=== PATIENT | male | born 1995 | race Caucasian/White ===

== ENCOUNTER 2022-05-01 11:14 | Emergency (ER) | payer SELFPAY ==
[2022-05-01 11:14] VITALS: BP 161/103; PULSE 150; RESP 18; TEMP 36.8; O2SAT 99; BMI 23.5
--- NOTE | 2022-05-01 11:25 | XR_ITS ---
FINAL REPORT CLINICAL HISTORY: cp AND PRESSURE, NONSMOKER COMPARISON: 02/08/2017 FINDINGS: SINGLE-VIEW CHEST The heart size is normal. The mediastinum is normal. The lungs are clear. There is no pneumothorax. IMPRESSION: No acute cardiopulmonary process. Reviewed, Interpreted and Dictated by Bassem Suh III, MD Transcribed by Khushboo Ge Authenticated and [facility]
--- NOTE | 2022-05-01 11:26 | HMH.EDCP ---
ED Disposition Clinical Impression: Chest discomfort, Atypical chest pain Disposition: Home, Self-Care Condition on Discharge: Good Instructions: DI for Atypical Chest Pain Additional Instructions: follow up cardiology, return for worse Referrals: Constantino Mccarthy MD [Primary Care Provider] - Louis Soto MD [Staff Physician] - - Critical Care Critical Care Time: No Attestation: On 05/01/22, the high probability of a clinically significant, sudden or life threatening deterioration of the following system(s) required my full and direct attention, intervention and personal management. The time I documented below is in addition to time spent performing reported procedures but includes the following listed in this critical care notation. Medical Decision Making - Medical Records Medical records reviewed: Yes: I reviewed the patient's medical records. - Jairo Inquiry Pt receiving controlled substance: No Vital Signs: 05/01/22 11:14 Temperature 98.2 F Temperature Source Oral Pulse Rate [Left Radial] 150 H Respiratory Rate 18 Blood Pressure [Right Arm] 161/103 H Blood Pressure Mean [Right Arm] 122 Blood Pressure Source [Right Arm] Automatic Cuff Blood Pressure Position [Right Arm] Sitting 02 Sat by Pulse Oximetry 99 Oxygen Delivery Method Room Air Orders (Tests/Meds): ORDERS Category Date Time Status XR chest portable Stat Exams 05/01/22 11:25 Taken EKG Request [ECG Request by Dr/Sophie] Stat Y 05/01/22 11:25 Ordered - ECG Data Tracing #1 I reviewed this ECG and interpreted as documented below: ekg by me nsr sinus arrthmia, non spec qrs and t wave changes Medical Decision Narrative: no sig risk factor for cad, nml hr, non spec ekg chNGES, ok with plab to f.u cardiuoloigy Chest Pain HPI - General Stated Complaint: chest pressure/tightness Time Seen by Provider: 05/01/22 11:26 - History of Present Illness HPI narrative: cp, soa few days since mom Duration: intermittent Activity at onset: during rest Pain location: left chest Severity: mild Pain radiation: none Relieving factors: nothing Exacerbating factors: nothing - MAICOL Score for Non-Stemi Age of Patient: <30 years old Heart Rate: 90-109 bpm Systolic Blood Pressure: 140-159 mmHg Other Risk Factors: None - Related Data Allergies Allergy/AdvReac Type Severity Reaction Status Date / Time No Known Allergies Allergy Verified 03/11/19 18:57 [facility] History - Hepatitis A Screen Attestation statement:: This patient has been screened for Hepatitis A risk factors. - Social History Alcohol Intake: never Occupational Status: employed ROS Obtained: Yes All systems reviewed & no additional complaints Physical Exam - General General appearance: alert, in no apparent distress - Head Head exam: atraumatic, normocephalic - Eye Eye exam: Present: normal appearance, PERRL - Neck Neck exam: Present: normal inspection, full ROM - Chest Chest inspection: Present: normal inspection, symmetric chest wall rise. Absent: tenderness - Respiratory Respiratory exam: Present: normal lung sounds bilaterally. Absent: respiratory distress, wheezes - Cardiovascular Cardiovascular exam: Present: regular rate, normal rhythm, normal heart sounds - Abdominal Exam Abdominal exam: Absent: tenderness, guarding, rigidity - Extremities Exam Extremities exam: Present: normal inspection, full ROM, normal capillary refill - Neurological Exam Neurological exam: Present: alert, oriented X3, CN II-XII intact - Psychiatric Psychiatric exam: Present: normal affect, normal mood, depressed. Absent: homicidal ideation, suicidal ideation - Skin Skin exam: Present: warm, intact, normal color
--- NOTE | 2022-05-01 11:27 | ECG_ITS ---
APPROVED REPORT Exam: Resting ECG HR:96 bpm ECG Measurements Heart Rate 96 AXES AZ 168 P 69 QRSd 83 QRS 47 QT 318 T 56 QTc 371 Conclusion SINUS RHYTHM WITH SINUS ARRHYTHMIA MINIMAL VOLTAGE CRITERIA FOR LVH, CONSIDER NORMAL VARIANT [MEETS CRITERIA IN ONE OF: R(aVL), S(V1), R(V5), R(V5/V6)+S(V1)] NONSPECIFIC T-WAVE ABNORMALITY BORDERLINE ECG UNCONFIRMED REPORT Electronically signed by : Jovani Saavedra MD 05/04/2022 18:07:31
[2022-05-01 12:12] VITALS: BP 140/86; PULSE 87; RESP 16; TEMP 36.6; O2SAT 98
== END 2022-05-01 12:13 | disposition home or self-care (01) ==
PROVIDERS: Emergency Provider Emergency Medicine; PCP Family Medicine
DX: R07.89 Other chest pain (principal); R06.02 Shortness of breath
CPT/HCPCS: 71045; 93005; 99284

== ENCOUNTER 2023-05-03 02:26 | Emergency (ER) | payer OTHER, SELFPAY ==
--- NOTE | 2023-05-03 02:35 | ECG_ITS ---
APPROVED REPORT Exam: Resting ECG HR:71 bpm ECG Measurements Heart Rate 71 AXES LA 168 P 69 QRSd 84 QRS 65 QT 341 T 65 QTc 364 Conclusion SINUS RHYTHM NORMAL ECG UNCONFIRMED REPORT Electronically signed by : Jovani Saavedra MD 05/03/2023 16:18:20
[2023-05-03 02:37] VITALS: BP 161/87; PULSE 74; RESP 16; TEMP 36.8; O2SAT 99; BMI 25.0
--- NOTE | 2023-05-03 03:13 | XR_ITS ---
PROCEDURE INFORMATION: Exam: XR Chest Exam date and time: 05/03/2023 3:36 AM Age: 27 years old Clinical indication: Injury or trauma; Other: Electric shock; Other: Shocked at work; Injury date: 05/03/2023; Injury details: PT went to power down machine and it shocked him; Additional info: Chest pain post electrical shock to rue TECHNIQUE: Imaging protocol: Radiologic exam of the chest. Views: 2 views. COMPARISON: CR XR CHEST PORTABLE 05/01/2022 11:26 AM FINDINGS: Lungs: Unremarkable. No consolidation. Pleural spaces: Unremarkable. No pleural effusion. No pneumothorax. Heart/Mediastinum: Unremarkable. No cardiomegaly. Bones/joints: Unremarkable. IMPRESSION: No acute findings.
[2023-05-03 03:21] LABS: Basophils # 0.1 K/mm3 (0-0.2); Basophils % 0.7 % (0.1-2.0); Eosinophils # 0.2 K/mm3 (0.0-0.4); Eosinophils % 2.2 % (0.1-12.0); Hemoglobin 14.8 g/dL (14.1-18.0); Lymphocytes # 3.5 K/mm3 (0.7-4.5); Lymphocytes % 34.6 % (10-50); Mean Corpuscular HGB Conc 32.8 g/dL (31.8-35.4); Mean Corpuscular Hemoglobin 27.6 pg (27.0-31.2); Mean Corpuscular Volume 84.2 fl (80-94); Mean Platelet Volume 7.6 fl (7.4-10.4); Monocytes # 0.7 K/mm3 (0.1-1.0); Monocytes % 6.6 % (1.7-9.3); Neutrophils # 5.6 K/mm3 (1.8-7.8); Neutrophils % 55.9 % (37.0-80.0); Platelet Count 320 K/mm3 (142-424); Red Blood Count 5.35 M/mm3 (4.60-6.20); Red Cell Distribution Width 12.8 % (11.5-17.5)
[2023-05-03 03:26] LABS: Chloride 100 mmol/L (98-107)
[2023-05-03 03:27] LABS: Potassium 3.9 mmoL/L (3.5-5.1); Sodium 141 mmol/L (136-145)
[2023-05-03 03:30] LABS: Alanine Aminotransferase 27 U/L (12-78); Albumin/Globulin Ratio 1.6 (1.1-1.8); Alkaline Phosphatase 92 U/L (38-126); Anion Gap 13.9 mEq/L (5-15); Aspartate Amino Transferase 36 U/L (17-59); Bilirubin,Total 1.2 mg/dl (0.2-1.3); Blood Urea Nitrogen 17 mg/dl (9-20); Calcium 9.1 mg/dl (8.4-10.2); Carbon Dioxide 31 mmol/L (22.0-30.0); Creatinine Clearance Estimated 116 mL/min (50-200); Estimated Glomerular Filt Rate 91 ml/min (>60); GFR (African American) 110 ML/MIN (>60); Globulin 3.1 g/dL (1.3-3.2); Glucose 102 mg/dl (74-100); Total Protein,Serum 8.1 g/dl (6.3-8.2)
--- NOTE | 2023-05-03 03:37 | HMH.EDGENADL ---
Discharge Plan Disposition Patient Disposition: Home, Self-Care Chief Complaint: PAIN Referrals Follow up/Referrals: Constantino Mccarthy MD [Primary Care Provider] - See instructions Clinical Impressions Clinical Impression: Electrical injury in adult Instructions Patient Instructions: DI for Electrical [place] Discharge ED Provider: Vance (ED)Ayad General Adult HPI General Chief complaint: PAIN Stated complaint: AO 05/02/23 23:00 Electrical Shock at work Time Seen by Provider: 05/03/23 03:00 Mode of Arrival: Ambulatory Source of Information: Patient and Medical Record Limitations: No Limitations Description of Symptoms (Recalled from ER Triage Doc. by RN): Pt states that at approx 2300 he was at work when a piece of equipment shocked him beginning in his left index finger and thumb. States that he never lost consciousness. C/O feelings of warmth in his chest for two hours following the injury and numbness and tingling in his left hand. No other symptoms reported. History of Present Illness HPI narrative: shocked at work through lt hand and felt tingling and pain in chest at baseline now -no spine pain - Onset (ago): hour(s) Location: chest and upper extremity Severity: moderate Associated symptoms: denies other symptoms Related Data Allergies Allergy/AdvReac Type Severity Reaction Status Date / Time No Known Allergies Allergy Verified 03/11/19 18:57 [facility] Disclaimer: The information contained in this section may have been updated after the patient was seen, as this information can be updated by other users. Social History Smoking Status: Current every day smoker alcohol intake: never current occupational status: employed Travel in the last 8 weeks: None ROS Obtained: Yes All systems reviewed & no additional complaints except as documented Physical Exam General General appearance: alert Head Head exam: normocephalic Eye Eye exam: Present PERRL and EOMI ENT ENT exam: Present mucous membranes moist Neck Neck exam: Present trachea midline Respiratory Respiratory exam: Present normal lung sounds bilaterally; Absent respiratory distress Cardiovascular Cardiovascular exam: Present regular rate; Absent systolic murmur Abdominal Exam Abdominal exam: Present soft; Absent tenderness Extremities Exam Extremities exam: Present full ROM Neurological Exam Neurological exam: Present alert, oriented X3 and CN II-XII intact; Absent motor sensory deficit Psychiatric Psychiatric exam: Present normal affect Skin Skin exam: Present other (no aguillon ); Absent rash Medical Decision Making Medical Records Medical records reviewed: Yes I reviewed the patient's medical records. Jairo Inquiry Pt receiving controlled substance: No Vital Signs: 05/03/23 02:37 Temperature 98.2 F Temperature Source Oral Pulse Rate [Apical] 74 Respiratory Rate 16 Blood Pressure [Right Arm] 161/87 H Blood Pressure Mean [Right Arm] 111 Blood Pressure Source [Right Arm] Automatic Cuff Blood Pressure Position [Right Arm] Sitting 02 Sat by Pulse Oximetry 99 Oxygen Delivery Method Room Air Lab Data Lab results reviewed: Yes I reviewed the patient's lab results. Lab Results 05/03/23 02:45: WBC 10.0, RBC 5.35, Hgb 14.8, Hct 45.0, MCV 84.2, MCH 27.6, MCHC 32.8, RDW 12.8, Plt Count 320, MPV 7.6, Neut % (Auto) 55.9, Lymph % (Auto) 34.6, Bailey % (Auto) 6.6, Eos % (Auto) 2.2, Baso % (Auto) 0.7, Neut # (Auto) 5.6, Lymph # (Auto) 3.5, Bailey # (Auto) 0.7, Eos # (Auto) 0.2, Baso # (Auto) 0.1 05/03/23 02:45: Sodium 141, Potassium 3.9, Chloride 100, Carbon Dioxide 31 H, Anion Gap 13.9, BUN 17, Creatinine 1.00, Estimated Creat Clear 116, Estimated GFR 91, Est GFR ( Amer) 110, Glucose 102 H, Calcium 9.1, Total Bilirubin 1.2, AST 36, ALT 27, Alkaline Phosphatase 92, Troponin I < 0.01, Total Protein 8.1, Albumin 5.0, Globulin 3.1, Albumin/Globulin Ratio 1.6 Result diagrams: 05/03/23 02:45 05/03/23 02:45
[2023-05-03 03:44] LABS: Troponin I < 0.01 ng/ml (0.00-0.034)
[2023-05-03 04:10] VITALS: BP 160/85; PULSE 72; RESP 18; TEMP 36.6; O2SAT 99
== END 2023-05-03 04:15 | disposition home or self-care (01) ==
PROVIDERS: Emergency Provider Emergency Medicine; PCP Family Medicine
DX: T75.4XXA Electrocution, initial encounter (principal); R07.89 Other chest pain; R20.2 Paresthesia of skin; F17.200 Nicotine dependence, unspecified, uncomplicated; W31.82XA Contact with other commercial machinery, initial encounter; Y99.0 Civilian activity done for income or pay
CPT/HCPCS: 71046; 80053; 84484; 85025; 93005; 96361; 96374; 99285; J2405

== ENCOUNTER 2024-02-20 20:18 | Emergency (ER) | payer BC, SELFPAY ==
[2024-02-20] VITALS (10 sets, daily range): BP systolic 144–187; BP diastolic 73–96; PULSE 73–113; RESP 14–19; TEMP 36.7–36.9; O2SAT 97–100; BMI 27.3
--- NOTE | 2024-02-20 20:17 | ECG_ITS ---
APPROVED REPORT Exam: Resting ECG HR:94 bpm ECG Measurements Heart Rate 94 AXES TX 168 P 66 QRSd 85 QRS 63 QT 327 T 65 QTc 379 Conclusion SINUS RHYTHM Electronically signed by : BROOKE AVILES, 02/20/2024 21:07:37
--- NOTE | 2024-02-20 20:25 | XR_ITS ---
PROCEDURE INFORMATION: Exam: XR Chest Exam date and time: 02/20/2024 8:25 PM Age: 28 years old Clinical indication: Shortness of breath; Additional info: SOA candido TECHNIQUE: Imaging protocol: Radiologic exam of the chest. Views: 1 view. COMPARISON: No relevant prior studies available. FINDINGS: Lungs: Unremarkable. No consolidation. Pleural spaces: Unremarkable. No pleural effusion. No pneumothorax. Heart/Mediastinum: Unremarkable. No cardiomegaly. Bones/joints: Unremarkable. IMPRESSION: No acute findings.
[2024-02-20] MEDS: ASPIRIN 81MG CHEWABLE TABLET 324 MG PO (20:31)
[2024-02-20 20:32] LABS: Basophils # 0.1 K/mm3 (0-0.2); Basophils % 1.1 % (0.1-2.0); Eosinophils # 0.3 K/mm3 (0.0-0.4); Eosinophils % 2.6 % (0.1-12.0); Lymphocytes # 2.8 K/mm3 (0.7-4.5); Lymphocytes % 25.2 % (10-50); Mean Corpuscular HGB Conc 33.4 g/dL (31.8-35.4); Mean Corpuscular Hemoglobin 29.1 pg (27.0-31.2); Mean Corpuscular Volume 87.1 fl (80-94); Mean Platelet Volume 7.6 fl (7.4-10.4); Monocytes # 0.8 K/mm3 (0.1-1.0); Monocytes % 6.8 % (1.7-9.3); Neutrophils # 7.1 K/mm3 (1.8-7.8); Neutrophils % 64.2 % (37.0-80.0); Platelet Count 363 K/mm3 (142-424); Red Blood Count 5.17 M/mm3 (4.60-6.20); Red Cell Distribution Width 12.8 % (11.5-17.5)
[2024-02-20 20:33] LABS: Chloride 104 mmol/L (98-107); Sodium 142 mmol/L (136-145)
[2024-02-20 20:34] LABS: Potassium 3.4 mmoL/L (3.5-5.1)
[2024-02-20 20:36] LABS: Alanine Aminotransferase 40 U/L (12-78); Alkaline Phosphatase 106 U/L (38-126); Anion Gap 9.4 mEq/L (5-15); Aspartate Amino Transferase 38 U/L (17-59); Bilirubin,Total 1.3 mg/dl (0.2-1.3); Blood Urea Nitrogen 17 mg/dl (9-20); Carbon Dioxide 32 mmol/L (22.0-30.0); Creatinine Clearance Estimated 126 mL/min (50-200); Estimated Glomerular Filt Rate 90 ml/min (>60); GFR (African American) 109 ML/MIN (>60)
[2024-02-20 20:37] LABS: Albumin Level 4.6 g/dl (3.5-5.0); Albumin/Globulin Ratio 1.5 (1.1-1.8); Calcium 9.1 mg/dl (8.4-10.2); Globulin 3.1 g/dL (1.3-3.2); Glucose 133 mg/dl (74-100); Total Protein,Serum 7.7 g/dl (6.3-8.2)
--- NOTE | 2024-02-20 20:41 | ED_ITS ---
Discharge Plan Disposition Patient Disposition: Hospice - Medical Facility Prescriptions Prescriptions: New candesartan 16 mg tablet 16 mg PO DAILY Qty: 30 1RF Referrals Follow up/Referrals: Louis Soto MD [Staff Physician] - See instructions Provider,MD Vee [Referring] - See instructions Activity Restrictions/Add. Instructions Additional Instructions/Restrictions: Antihypertensive medication sent to pharmacy. Pick this up at [facility]. Referral for cardiology listed here, call Dr. Soto's office for further workup and evaluation. Call your family doctor to establish care for this visit to the emergency department and schedule follow-up within 48 hours to ensure improvement. If you have any worsening of your condition or any other concerning signs or symptoms, return to the emergency department or your primary care doctor for further evaluation. Clinical Impressions Clinical Impression: Hypertension, Chest pain Discharge ED Provider: Juan Diego Taylor General Chief Complaint: Chest Pain Stated Complaint: cp Time Seen by Provider: 02/20/24 20:21 Mode of Arrival: Ambulatory Source of Information: Patient Limitations: No Limitations Description of Symptoms (Recalled from ER Triage Doc. by RN): pt states has been having episodes of lt side chest pain lastly a minute x 2 weeks. pt not currently having chest pain . but today during episode had pain radiating bilateral up necj History of Present Illness HPI narrative: 28-year-old male presenting with chest pain. Patient has extensive family history of early cardiac . States that for the past couple of weeks he has had brief episodes of chest pain that are substernal, associated with shortness of breath. Today, at work, had substernal chest pain radiated to bilateral sides of neck. Associated with diaphoresis and nausea. States that he had a coworker tell him that a blue vein was going up the right side of his neck and looked pinched off. Due to all of the symptoms, came to the emergency department for further evaluation. Not currently having symptoms, but they are intermittent. Nothing in particular makes it better or worse. Please note that above description of symptoms, in this electronic medical record under categorization of recalled from ER triage doctor by RN are reflective of an initial nursing assessment, however, is not reflective of my full history and physical exam that was personally taken and clarified. Consequentially, this preceding description of symptoms, which may include the patient's categorized chief complaint in the EMR, do not reflect my personal clinical impression, and the ultimate description of history of present illness and patient stated complaints should be deferred to this section of the note. Unless stated otherwise or congruent with this section of the note, additional signs, symptoms, or incongruence should be interpreted as inaccurate with my clinical impression. Related Data Previous Rx's Medication Instructions Recorded candesartan 16 mg tablet 16 mg PO DAILY #30 tabs 02/20/24 Allergies Allergy/AdvReac Type Severity Reaction Status Date / Time No Known Allergies Allergy Verified 03/11/19 18:57 [facility] Disclaimer: The information contained in this section may have been updated after the patient was seen, as this information can be updated by other users. Social History Smoking Status: Never smoker alcohol intake: never current occupational status: employed Travel in the last 8 weeks: None ROS Obtained: Yes All systems reviewed & no additional complaints except as documented Physical Exam General General appearance: alert Neck Neck exam: Present trachea midline Chest Chest inspection: Present normal inspection and symmetric chest wall rise Respiratory Respiratory exam: Present normal lung sounds bilaterally; Absent respiratory distress, wheezes, stridor, accessory muscle use or prolonged expiratory phase Cardiovascular Cardiovascular exam: Present regular rate, normal rhythm and systolic murmur (heard throughout precordium) Extremities Exam Extremities exam: Absent edema Neurological Exam Neurological exam: Present alert, oriented X3 and CN II-XII intact Skin Skin exam: Present warm and dry; Absent cyanosis, diaphoresis or pallor HEART Score HEART Score HEART Score assessment performed?: Yes HEART Score: 1 Critical Care Critical Care Time Critical Care Time: No Medical Decision Making Medical Records Medical records reviewed: Yes I reviewed the patient's medical records. Jairo Inquiry Pt receiving controlled substance: No Jairo was queried for this patient: No Vital Signs Vital Signs: 02/20/24 20:19 02/20/24 20:23 02/20/24 20:30 Temperature 98.5 F Temperature Source Oral Pulse Rate 113 H 90 Pulse Rate [Right] 113 H Respiratory Rate 16 16 Blood Pressure 156/92 H Blood Pressure [Right Arm] 187/96 H Blood Pressure Mean 115 Blood Pressure Mean [Right Arm] 126 02 Sat by Pulse Oximetry 99 100 02/20/24 20:43 02/20/24 20:46 02/20/24 21:00 Temperature Temperature Source Pulse Rate 78 73 Pulse Rate [Right] Respiratory Rate 18 16 Blood Pressure 187/96 H 148/76 H 145/74 H Blood Pressure [Right Arm] Blood Pressure Mean 100 92 Blood Pressure Mean [Right Arm] 02 Sat by Pulse Oximetry 97 99 Lab Data Labs: Lab Results 02/20/24 20:19: WBC 11.0 H, RBC 5.17, Hgb 15.0, Hct 45.0, MCV 87.1, MCH 29.1, MCHC 33.4, RDW 12.8, Plt Count 363, MPV 7.6, Neut % (Auto) 64.2, Lymph % (Auto) 25.2, [place] % (Auto) 6.8, Eos % (Auto) 2.6, Baso % (Auto) 1.1, Neut # (Auto) 7.1, Lymph # (Auto) 2.8, [place] # (Auto) 0.8, Eos # (Auto) 0.3, Baso # (Auto) 0.1, Sodium 142, Potassium 3.4 L, Chloride 104, Carbon Dioxide 32 H, Anion Gap 9.4, BUN 17, Creatinine 1.00, Estimated Creat Clear 126, Estimated GFR 90, Est GFR ( Amer) 109, Glucose 133 H, Calcium 9.1, Total Bilirubin 1.3, AST 38, ALT 40, Alkaline Phosphatase 106, Troponin I < 0.01, NT-Pro-B Natriuret Pep < 20.0, Total Protein 7.7, Albumin 4.6, Globulin 3.1, Albumin/Globulin Ratio 1.5 02/20/24 22:15: Troponin I < 0.01 02/20/24 20:19 02/20/24 20:19 Response Orders (Tests/Meds): ED MEDICATIONS Discontinued Medications Generic Name Dose Route Start Last Admin Trade Name Sherri PRN Reason Stop Dose Admin Aspirin 324 mg 02/20/24 20:25 02/20/24 20:31 Aspirin 81mg Chewable Tablet PO 02/20/24 20:26 324 mg ONCE ONE Administration Labetalol HCl 10 mg 02/20/24 20:38 02/20/24 20:43 Labetalol 20mg/4ml Syringe IV 02/20/24 20:39 10 mg ONCE ONE Administration ORDERS Category Date Time Status CXR --portable [XR chest portable] Stat Exams 02/20/24 20:25 Completed POCUS Point of Care (ER Only) Stat Exams 02/20/24 20:26 Taken CBC w/Auto Diff [Complete Blood Count Auto Diff] Stat Lab 02/20/24 20:19 Completed CMP [Comprehensive Metabolic Panel] Stat Lab 02/20/24 20:19 Completed NT Pro Brain Natriuretic Pep. Stat Lab 02/20/24 20:19 Completed Trop I [Troponin I] Stat Lab 02/20/24 20:19 Completed Troponin I Q3H Lab 02/20/24 22:15 Completed Troponin I Q3H Lab 02/21/24 02:30 Ordered MDM Narrative Medical Decision Narrative: 28-year-old male presenting with chest pain. Patient has extensive family history of early cardiac . States that for the past couple of weeks he has had brief episodes of chest pain that are substernal, associated with shortness of breath. Today, at work, had substernal chest pain radiated to bilateral sides of neck. Associated with diaphoresis and nausea. States that he had a coworker tell him that a blue vein was going up the right side of his neck and looked pinched off. Due to all of the symptoms, came to the emergency department for further evaluation. Not currently having symptoms, but they are intermittent. Nothing in particular makes it better or worse. It should be noted the patient has extensive cardiac history in the family. On arrival, patient hemodynamically stable, alert, oriented, well-appearing overall. Lungs are clear to auscultation bilaterally anterior and posterior. Cardiac exam with systolic murmur heard throughout the precordium, primarily right upper sternal border and apex. Pulses are equal and symmetric. No lower extremity edema. Neurologically intact. Differential includes anxiety, panic, microvascular coronary artery disease, CHF, ACS, DE, coronary artery dissection, pneumothorax, PE, dissection, pericarditis, myocarditis, pneumothorax, aortic aneurysm, pneumonia, bronchitis, among others. Independent interpretation of workup significant for negative troponin, nonactionable CBC or chemistry. Chest x-ray without acute cardiopulmonary airspace disease. Bedside [id number] ultrasound without acute cardiac abnormality, normal overall. Delta troponin negative. Because patient at baseline without signs or symptoms of clinical decompensation, deemed appropriate for discharge. Results were relayed to patient who voiced understanding and were agreeable to outpatient management and follow up. I discussed my clinical impression with patient and answered all questions. At this time, the evidence for any other entities in the differential is insufficient to warrant any further testing or ED observation. This was explained as well. Advisory was given that persistent or worsening symptoms require further evaluation. I confirmed the understanding of this discussion. Given cardiology follow-up.
[2024-02-20] MEDS: LABETALOL 20MG/4ML SYRINGE 10 MG IV (20:43)
[2024-02-20 20:51] LABS: NT Pro Brain Natriuretic Pep. < 20.0 pg/mL (0-125)
[2024-02-20 20:57] LABS: Troponin I < 0.01 ng/ml (0.00-0.034)
[2024-02-20 22:50] LABS: Troponin I < 0.01 ng/ml (0.00-0.034)
== END 2024-02-20 23:18 | disposition home or self-care (01) ==
PROVIDERS: Emergency Provider Emergency Medicine; PCP Family Medicine
DX: R07.9 Chest pain, unspecified (principal); R06.02 Shortness of breath; I10 Essential (primary) hypertension
CPT/HCPCS: 71045; 80053; 83880; 84484; 85025; 93005; 96374; 99285

== ENCOUNTER 2024-03-20 09:18 | Outpatient (CLI) | payer BC, SELFPAY ==
--- NOTE | 2024-03-20 09:21 | CA_ITS ---
APPROVED REPORT EXAM: Comprehensive 2D, Doppler, and color-flow Echocardiogram Termination Clerk: Jessica Meredith RT(R) Ht: 5 ft 7 in Wt: 175lbs BSA: 1.91 BP: 149/79 mmHg Indications: CP, murmur, HTN 2D Dimensions LVEF (Mahajan's) 46.10 % M: 52 - 72 LV Volume 141.60 mL M: 62 - 150 LV Volume Index 74.1 mL/m2 M: 34 - 74 LA Volume 21.40 mL LA Volume Index 11.20 mL/m2 (M/F) 16-34 EF AP4 47.30 % EF AP2 46.2 % EF BP 46.1 % GL Strain -13.6 % M-Mode Dimensions RVDd 2.35 cm (0.9-2.6) LA Diam 2.59 cm (1.9-4.0) LVDd 4.59 cm (3.5-5.7) LVDs 3.34 cm (3.5-5.7) IVSd 0.61 cm (0.6-1.1) PWd 0.72 cm (0.6-1.1) EF (Teich) 53.10% FS 27.20% EDV (Teich) 96.80 mL ESV (Teich) 45.40 mL LV Diastology E Decel Time 150 (160-240 msec) E/A Ratio 1.3 Mitral Valve MV E Max Goldy. 92.0 (40-130 cm/s) MV A Velocity 73.0 (40-130 cm/s) E/A Ratio 1.26 MV PHT 44.0 ms Left Ventricle The left ventricle is normal size. The left ventricular systolic function is normal. The left ventricular ejection fraction is within the normal range. There is normal left ventricular wall thickness. There is normal LV segmental wall motion. The left ventricular diastolic function is normal. LVEF is 55%. Right Ventricle The right ventricle is normal size. The right ventricular systolic function is normal. Atria The left atrium size is normal. The right atrium size is normal. There is no Doppler evidence of interatrial shunt. Aortic Valve The aortic valve opens well. There is no aortic valvular stenosis. Trace aortic regurgitation. Mitral Valve The mitral valve is normal in structure. No evidence of mitral valve stenosis. There is no mitral valve regurgitation noted. Tricuspid Valve The tricuspid valve leaflets are thin and pliable. Trace tricuspid regurgitation. There is insufficient TR jet to estimate RVSP. Pulmonic Valve The pulmonary valve is normal in structure. Trace pulmonic regurgitation. Great Vessels The aortic root is normal in size. The ascending aorta is normal in size. IVC is normal in size and collapses >50% with inspiration. Pericardium There is no pericardial effusion. Other Information Study Quality: Adequate Conclusion Normal biventricular systolic function. No significant valvular stenosis or regurgitation. Electronically signed by : Do Monteiro MD 03/24/2024 20:40:40
--- NOTE | 2024-03-20 09:21 | CA_ITS ---
APPROVED REPORT Exam: Exercise Treadmill Technologist: Sandra Sow, Ht: 5 ft 7 in Wt: 182 lbs BSA: 1.94 m2 HR: 71 bpm BP: 134/84 mmHg Rhythm: NSR, NS ST abns inferiorly Medical History Medications: CaNDESARTAN,,,,, Cardiac Risk Factors: FHX of CAD Stress Test Details Test: Yun HR Resting HR: 76 bpm Max Heart Rate (APMHR): 194 bpm Max HR Achieved: 178 bpm Target HR (85% APMHR): 165 bpm % of APMHR: 92 Recovery HR: 144 bpm HR response to stress: Normal HR response to stress BP Resting BP: 143.0/76 mmHg Max BP: 198/70 mmHg Recovery BP: 159.0/84.0 mmHg BP response to stress: Normal blood pressure response to stress. ECG Resting ECG: NSR NS ST abns inferiorly Stress EC mm horizontal ST depression Arrhythmia: None Recovery ECG: Return to baseline within 3 minutes of recovery Recovery Arrhythmia: None Clinical Exercise duration: 09:54 min Highest Stage Achieved: Exercise capacity: 12.8 METs Overall Exercise Capacity for Age: Average Stress ECG Conclusion During yun protocol pt exericsed 9:54 minutes total. No CP noted. No arrhythmias noted. Approx 1mm horizontal ST depression Conclusion: Average exercise capacity. Abnormal stress EKG suggesting ischemia. GXT only. Further evaluation with stress testing + imaging is recommended. Test Summary REST . . . . . . . Sitting REST . . . . . . . Standing REST 03:51 0.0 0.0 76 . 143/ 76 . . Stage 1 01:00 10.0 1.7 103 . . . . Stage 1 02:00 10.0 1.7 117 . . . . Stage 1 03:00 10.0 1.7 111 . . . . Stage 2 01:00 12.0 2.5 120 . 164/ 74 . . Stage 2 02:00 12.0 2.5 128 . 164/ 74 . . Stage 2 03:00 12.0 2.5 132 . 184/ 78 . . Stage 3 01:00 14.0 3.4 140 . . . . Stage 3 02:00 14.0 3.4 149 . . . . Stage 3 03:00 14.0 3.4 161 . 198/ 70 . . Stage 4 00:54 16.0 4.2 178 . . . Stop exercise at 09:54 RECOVERY 01:00 0.0 0.0 146 . . . . RECOVERY 02:00 0.0 0.0 128 . 159/ 84 . . RECOVERY 03:00 0.0 0.0 117 . 178/ 77 . . RECOVERY 04:00 0.0 0.0 114 . 148/ 83 . . RECOVERY 05:00 0.0 0.0 114 . 147/ 81 . . RECOVERY 06:00 0.0 0.0 111 . 147/ 81 . . RECOVERY 07:00 0.0 0.0 107 . 147/ 81 . . RECOVERY 07:34 0.0 0.0 113 . 144/ 77 . . Electronically signed by : Do Monteiro MD 03/26/2024 13:58:16
== END 2024-03-20 23:59 | disposition home or self-care (01) ==
LOC: RT 09:21
PROVIDERS: PCP Internal Medicine Adolescent Medicine; Visit Provider Nurse Practitioner
DX: R01.1 Cardiac murmur, unspecified (principal); R07.9 Chest pain, unspecified; I10 Essential (primary) hypertension; F41.9 Anxiety disorder, unspecified
CPT/HCPCS: 93017; 93018; 93306

== ENCOUNTER 2025-02-25 15:44 | Outpatient (CLI) | payer BC, SELFPAY ==
--- NOTE | 2025-02-25 15:47 | MR_ITS ---
PROCEDURE INFORMATION: Exam: MR Cervical Spine Without Contrast Exam date and time: 02/25/2025 4:18 PM Age: 29 years old Clinical indication: Neck pain; Pain since sep 2024. Numbness in right arm. Weakness and soreness in right arm worst when driving; Additional info: Cervical radiculopathy TECHNIQUE: Imaging protocol: Magnetic resonance imaging of the cervical spine without contrast. COMPARISON: CR XR ORBIT BILATERAL MIN 4V 02/25/2025 3:55 PM FINDINGS: Bones/joints: Reversal of the upper cervical lordosis. No acute fracture seen. The AP spinal canal diameter is mildly diminished on a developmental basis due to shortened pedicles. Spinal cord: Normal signal. Mild disc height loss and spondylosis at C5-C6. 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 C2-C3: No stenoses. C3-C4: A subtle central disc protrusion. No significant stenoses. C4-C5: Mild disc bulge, a 2 mm right paracentral disc protrusion. No significant stenoses. C5-C6: Mild disc osteophyte complex and slight ligamentum flavum buckling. A 3-4 mm right sided disc protrusion demonstrating paracentral to foraminal components slightly flattening right ventral cord. No evidence of cord myelopathy. In combination with developmental spinal canal narrowing, mild to moderate central spinal canal stenosis. Likely moderate right lateral canal and foraminal stenoses (some limitations optimally assessing the lateral recess and foramen on the axial imaging due to motion artifacts). Uncovertebral and facet arthropathy causing mild left neural foraminal stenosis. C6-C7: Mild disc bulge and ligamentum flavum buckling. A 2-3 mm right paracentral/lateral canal disc protrusion. In combination with developmental spinal canal narrowing, mild central spinal canal stenosis. Right lateral canal stenosis is mild. Uncovertebral and facet arthropathy causing mild right and no significant left neural foraminal stenoses. C7-T1: Mild facet arthropathy. No stenoses. Soft tissues: Unremarkable. Vasculature: Expected flow voids in the vertebral arteries. IMPRESSION: Right lateral canal and foraminal stenoses at C5-C6.
--- NOTE | 2025-02-25 15:50 | XR_ITS ---
FINAL REPORT CLINICAL HISTORY: r/o metal in eyes prior to mri FINDINGS: ORBITS Look up and look down views were obtained for MRI clearance. No evidence of radiopaque/metallic foreign body identified. IMPRESSION: No radiopaque/metallic foreign body. Cleared for MRI. Reviewed, Interpreted and Dictated by Khadijah Sanon MD Transcribed by Olivia Weber Authenticated and . [facility]
== END 2025-02-25 23:59 | disposition home or self-care (01) ==
LOC: RAD 15:44
PROVIDERS: PCP Internal Medicine Adolescent Medicine; Visit Provider Internal Medicine Adolescent Medicine
DX: M54.12 Radiculopathy, cervical region (principal)
CPT/HCPCS: 70200; 72141